=== PATIENT | male | born 1965 | race Caucasian/White ===

== ENCOUNTER 2017-09-13 13:08 | Emergency (ER) | payer MEDICAID ==
[~2017-09-13] VITALS: Ht 165.1 cm; Wt 70.8 kg
[2017-09-13 13:18] VITALS: BP 135/86; Ht 165.1 cm; Wt 70.8 kg
== END 2017-09-13 14:55 | disposition home or self-care (01) ==
LOC: ED 13:08
DX: S63.622A Sprain of interphalangeal joint of left thumb, initial encounter (principal); Z88.8 Allergy status to other drugs, medicaments and biological substances; X58.XXXA Exposure to other specified factors, initial encounter; Y93.89 Activity, other specified; Y99.8 Other external cause status; Y92.89 Other specified places as the place of occurrence of the external cause
CPT/HCPCS: J1885; Q0092

== ENCOUNTER 2018-05-21 10:30 | Emergency (ER) | payer MEDICAID ==
[~2018-05-21] VITALS: Ht 165.1 cm; Wt 69.9 kg
[2018-05-21 10:35] VITALS: Ht 165.1 cm; Wt 69.9 kg
[2018-05-21 13:29] VITALS: BP 124/71
== END 2018-05-21 13:29 | disposition home or self-care (01) ==
LOC: ED 10:30
DX: T78.40XA Allergy, unspecified, initial encounter (principal); X58.XXXA Exposure to other specified factors, initial encounter; Z98.890 Other specified postprocedural states; I10 Essential (primary) hypertension; E11.9 Type 2 diabetes mellitus without complications; J45.909 Unspecified asthma, uncomplicated
CPT/HCPCS: J1100; J7613; J7644

== ENCOUNTER 2018-10-23 10:31 | Emergency (ER) | payer MEDICAID ==
[~2018-10-23] VITALS: Ht 165.1 cm; Wt 70.1 kg
[2018-10-23 10:35] VITALS: BP 131/81; Ht 165.1 cm; Wt 70.1 kg
== END 2018-10-23 12:25 | disposition home or self-care (01) ==
LOC: ED 10:31
DX: L30.9 Dermatitis, unspecified (principal); Z88.8 Allergy status to other drugs, medicaments and biological substances; Z90.5 Acquired absence of kidney
CPT/HCPCS: J2930

== ENCOUNTER 2019-05-21 15:52 | Emergency (ER) | payer MEDICAID ==
[~2019-05-21] VITALS: Ht 165.1 cm; Wt 68.0 kg
[2019-05-21 16:03] VITALS: Ht 165.1 cm; Wt 68.0 kg
[2019-05-21 20:36] VITALS: BP 120/60
== END 2019-05-21 20:36 | disposition home or self-care (01) ==
LOC: ED 15:52
DX: L50.9 Urticaria, unspecified (principal); L30.9 Dermatitis, unspecified; Z88.8 Allergy status to other drugs, medicaments and biological substances
CPT/HCPCS: J2930

== ENCOUNTER 2019-08-18 09:40 | Emergency (ER) | payer MEDICAID ==
[~2019-08-18] VITALS: Ht 160 cm; Wt 65.3 kg
[2019-08-18 09:58] VITALS: Ht 160 cm; Wt 65.3 kg
[2019-08-18 12:44] LABS: BASOPHIL % 0.1 % (0-2); PLATELET COUNT 285 x10^3mcL (130-400); RED CELL DISTRIBUTION WIDTH 13.1 % (11.5-14.5)
[2019-08-18 12:48] LABS: microscopic required? NO
[2019-08-18 12:48] LABS: CALCIUM 9.3 mg/dL (8.5-10.1); CARBON DIOXIDE 25.8 mmol/L (21-32); CHLORIDE SERUM 102 mmol/L (98-107); GFR1 > 60 mL/min; GLUCOSE SERUM 88 mg/dL (74-106); POTASSIUM SERUM 3.9 mmol/L (3.5-5.1); SODIUM SERUM 137 mmol/L (136-145)
[2019-08-18 12:52] LABS: ALBUMIN 4.3 g/dL (3.4-5.0); ALKALINE PHOSPHATASE 91 U/L (46-116); ALT/SGPT 34 U/L (16-63); AST/SGOT 15 U/L (15-37); BILIRUBIN TOTAL 0.4 mg/dL (0.20-1.00); HDL CHOLESTEROL 47 mg/dL (40-60); LIPASE 349 IU/L (73-393)
[2019-08-18 12:53] LABS: CHOLESTEROL 286 mg/dL (<200); CHOLESTEROL/HDL RATIO 6.1; TOTAL PROTEIN, SERUM 8.6 g/dL (6.4-8.2); TRIGLYCERIDES 253 mg/dL (<150)
[2019-08-18 12:54] LABS: urine erythrocyte NEGATIVE (NEGATIVE)
[2019-08-18 13:00] LABS: T3 TOTAL 0.79 ng/mL
[2019-08-18 13:02] LABS: AMPHETAMINE QUAL UR POSITIVE (See below)
[2019-08-18 13:03] LABS: FREE T4 1.19 ng/dL (0.76-1.46); FREE THYROXINE INDEX 2.7 ug/dL (1.4-4.5); T4(THYROXINE) 6.8 ug/dL (4.7-13.3)
[2019-08-18 14:41] VITALS: BP 159/72
== END 2019-08-18 14:41 | disposition home or self-care (01) ==
LOC: ED 09:40
PROVIDERS: Specialist
DX: B34.9 Viral infection, unspecified (principal); R42 Dizziness and giddiness; F15.10 Other stimulant abuse, uncomplicated; F41.9 Anxiety disorder, unspecified; Z88.8 Allergy status to other drugs, medicaments and biological substances
CPT/HCPCS: 82962; 83880; 84439; 87804; G0480; J1885; J7030